=== PATIENT | male | born 1960 | race Caucasian/White ===

== ENCOUNTER → 2016-10-01 | Day surgery (SDC) | payer OTHER ==
[~2016-10-01] VITALS: Ht 177.8 cm; Wt 77.1 kg
--- NOTE | 2016-10-01 14:08 | Operative Report ---
Operative/Inv Procedure Report Surgery Date: 10/01/16 Name of Procedure: 1. Exam under anesthesia with anal block 2. Hemorrhoidectomy 2 quadrants 3. Mucopexy Pre-Operative Diagnosis: Hemorrhoidal disease failed RBL Post-Operative Diagnosis: Same Estimated Blood Loss: less than 50ml Surgeon/Supervisor Stitching Department: JOVI PARNELL MD Anesthesia: local monitored anesthesi Specimens: 1. Right posterior hemorrhoid 2. Left lateral hemorrhoid Complications: None Condition: Stable to recovery room Operative Indication: Patient is a 55-year-old otherwise healthy man who has been having bleeding from his hemorrhoids. Patient failed rubber band ligation. Patient presents today for a excisional hemorrhoidectomy. All risks benefits and alternatives of procedure were explained to patient detail, and patient expressed understanding and agreement with the same. Operative/Procedure Note Note: Patient was taken to the operating room and placed in the prone jackknife position on the operating table. Anesthesia was provided by the anesthesia team. All appropriate pressure points were padded, and the patient was secured to the operating table. The buttocks were taped apart. The perineum was prepped and draped in the standard surgical fashion. The timeout was carried out. Initial anal block was administered with 20 mL of 1% plain lidocaine. On anoscopy patient had prominent friable bleeding grade 3 right posterior and left lateral internal hemorrhoids and slightly friable grade 2 right anterior internal hemorrhoid. First, the right posterior internal hemorrhoid was excised. Hemostasis was achieved with electrocautery. The mucosal edges were approximated with running 2-0 Vicryl suture. Additional interrupted sutures were placed for hemostasis. Then the attention was moved to the left lateral internal hemorrhoid. It was excised in a similar fashion. Hemostasis was achieved with a running 2-0 Vicryl suture and additional interrupted sutures. Seen several right anterior hemorrhoid was slightly friable, it was pexied with a 2-0 Vicryl suture placed at the base of the hemorrhoidal pedicle and ran slightly proximal to the dentate line. Both ends of the suture were tied together. The anal canal was irrigated and checked for hemostasis once more. Gelfoam was placed within the anal canal. The sponge and instrument counts were correct in the end of procedure. The patient tolerated procedure well. She was wakened up and taken to recovery room in stable condition. Findings: 1. Right posterior and left lateral grade 3 bleeding internal hemorrhoids next line 2. Right anterior grade 2 friable internal hemorrhoid Discharge Disposition: home
== END ==
LOC: STS 01:37
DX: K64.1 Second degree hemorrhoids (principal); Z87.891 Personal history of nicotine dependence
CPT/HCPCS: 88304; C9290; J0131; J2250; J2405